=== PATIENT | male | born 1980 | race Caucasian/White ===

== ENCOUNTER 2018-12-21 18:36 | Observation (INO) ==
[2018-12-21] MEDS ORDERED: ZOFRAN IV ONE (19:04)
[2018-12-21] MEDS ORDERED: MORPHINE IV ONE (19:04)
--- NOTE | 2018-12-21 19:09 | PROVIDER DOCUMENTATION ---
HPI-Abdominal Pain/GI Problem - General Chief Complaint: Abdominal Pain Stated Complaint: HERNIA PAIN/MID STOMACH Time Seen by Provider: 12/21/18 18:59 Source: patient Allergies/Adverse Reactions: Patient Allergies Allergy/AdvReac Type Severity Reaction Status Date / Time No Known Allergies Allergy Verified 12/21/18 18:43 Home Medications: Home Medication List Medication Instructions Recorded Confirmed Last Taken Type NK [No Home Medications] 01/12/18 12/21/18 Unknown History - History of Present Illness-ABD Nature of Presenting Problems: 38 YOM PRESENTS WITH C/O LLQ AND PERIUMBILICAL ABDOMINAL PAIN. HE HAS A HERNIA AND HAS BEEN WEARING AND ABDOMINAL BINDER. HE REPORTS THE PAIN BEGAN UPON WAKING, HIS STOMACH IS TENDER AND HE HAS NAUSEA. DENIES FEVER, CHILLS, VOMITING, DIARRHEA Abdominal Pain Onset Location: reports: LLQ, periumbilical Pain Radiation: reports: no radiation Quality of Pain: reports: aching Severity in ED: reports: moderate Onset/Duration: reports: 4-6 hours ago Timing: reports: still present Activities at Onset: reports: none Exposure to sick contacts?: No Modifying Factors: improves with: nothing Associated Symptoms: reports: nausea Last BM: 24 hours ago Dark Stools Present?: reports: none noticed Rectal Bleeding: reports: none Rectal Pain: reports: none Emesis Description: reports: other Bruising or Bleeding Gums?: No Similar Symptoms Previously?: No Recently seen or treated by another doctor?: No Review of Systems - Adult - REVIEW OF SYSTEMS - ADULT Constitutional: reports: no symptoms reported. denies: see HPI, chills, fever, fatique, night sweats, weight gain, weight loss, other Eyes: reports: no symptoms reported. denies: see HPI, discharge, dry eyes, decreased vision, blurred vision, double vision, eye pain, redness, other Ears, Nose, Mouth & Throat: reports: no symptoms reported. denies: see HPI, ear discharge, ear pain, hearing loss, tinnitus, epistaxis, sinus problem, nose pain, loose teeth, mouth/dental pain, mouth swelling, hoarseness, throat pain, throat swelling, other Cardiovascular: reports: no symptoms reported. denies: see HPI, chest pain, edema, heart murmur, irregular heart rate, orthopnea, palpitations, poor circulation, PND, syncope, other Respiratory: reports: no symptoms reported. denies: see HPI, chronic cough, cough, dyspnea on exertion, excessive sputum production, hemoptysis, pleurisy, shortness of breath, wheezing, other Gastrointestinal: reports: abdominal pain, nausea. denies: no symptoms reported, see HPI, hematemesis, constipation, diarrhea, difficulty swallowing, frequent heartburn, poor appetite, rectal bleeding, vomiting, other Genitourinary: reports: no symptoms reported. denies: see HPI, dysuria, discharge, frequency, flank pain, frequent UTI's, hematuria, hesitency, incontinence, urinary retention, urgency, other Musculoskeletal: reports: no symptoms reported. denies: see HPI, bone pain, back pain, frequent leg cramps, joint pain, joint swelling, muscle aches, muscle weakness, neck pain, other Integumentary: reports: no symptoms reported. denies: see HPI, hives, hair loss, itching, mole changes, nail changes, rash, skin sores/ulcer, skin thickening, other Neurological: reports: no symptoms reported. denies: see HPI, ataxia, dizziness/vertigo, headache/migraines, loss of balance, numbness, paresthesia, seizure, slurred speech, syncope, tremors, other Psychiatric: reports: no symptoms reported. denies: see HPI, anxiety, anti- depressant use, alcohol/drug dependence, depression, emotional problems, insomnia, panic attacks, suicidal thoughts, other Endocrine: reports: no symptoms reported. denies: see HPI, change in skin pigment, excessive sweating, goiter, cold intolerance, heat intolerance, increased hunger, increased thirst, polyuria, other Hematologic/Lymphatic: reports: no symptoms reported. denies: see HPI, blood clots, easy bruising, low blood count, lymphedema, prolonged bleeding, swollen lymph nodes, transfusions, other Allergic/Immunologic: reports: no symptoms reported. denies: see HPI, allergic reactions, allergic rhinitis, asthma, eczema, food allergy, frequent infections, hay fever, hives, positive PPD, urticaria, other Past History - Adult - PAST MEDICAL HISTORY-ADULT Review of Records: reports: Nursing Assessment Review, Social history reviewed & non-contributory. Major Childhood Illnesses: reports: denies history Cardiovascular: reports: denies history Respiratory: reports: denies history Gastrointestinal: reports: denies history, diverticulosis Genitourinary: reports: kidney stones Other Conditions: reports: denies history - PRIOR SURGERIES/PROCEDURES Surgical/Procedure History: reports: other (colon resection) - PRIOR HOSPITALIZATIONS Prior Hospitalizations: reports: none - IMMUNIZATION STATUS Childhood Immunizations: See Nurse Assessment Flu Vaccine: See Nurse Assessment - FAMILY HISTORY Family History: reviewed, not pertinent Physical Exam-General - PHYSICAL EXAM-ADULT Initial Vital Signs Reviewed: Yes - CONSTITUTIONAL General Appearance: appears well, alert, no apparent distress - EYES Eyes: PERRL/EOMI, pink conjunctivae - HEAD, EARS, NOSE, MOUTH & THROAT HENMT: normocephalic/atraumatic, moist mucous membranes, normal ENT inspection - NECK Neck: non-tender, full range of motion, supple - RESPIRATORY Respiratory: chest non-tender, lungs clear, normal breath sounds, no pleuratic chest pain, no respiratory distress, no accessory muscle use - CARDIOVASCULAR Cardiovascular: normal peripheral pulses, regular rate, rhythm, no edema, no gallop, no JVD, no murmur - GASTROINTESTINAL (ABDOMEN) Abdominal Exam: normal bowel sounds, soft, tenderness, hernia. negative: non tender - LYMPHATIC Lymphatic: no adenopathy - MUSCULOSKELETAL Back Exam: normal inspection, no CVA tenderness, no vertebral tenderness Extremity: normal range of motion, non-tender, normal gait - SKIN Integumentary: normal color, normal turgor, warm/dry - NEUROLOGIC Neurologic: grossly normal - PSYCHIATRIC Psych/Mental Status: normal mood/affect, oriented x 3 Progress - PLAN OF CARE/RESULTS Progress/Plan/Lab Results: Vital Signs - 8 hr 12/21/18 18:39 Temperature 97.6 F Pulse Rate 70 Respiratory Rate 17 Blood Pressure 132/84 O2 Sat by Pulse Oximetry 96 Orders Category Date Time Status Saline Loc NOW Care 12/21/18 19:[address] ABD/PELVIS W/IV CONT ONLY [CT] Stat Exams 12/21/18 19:04 Ordered AMYLASE [CHEM] Stat Lab 12/21/18 19:04 Uncollected CBC WITH ELECTRONIC DIFF [HEME] Stat Lab 12/21/18 19:03 Uncollected COMPREHENSIVE METABOLIC PANEL [CHEM] Stat Lab 12/21/18 19:04 Uncollected LIPASE [CHEM] Stat Lab 12/21/18 19:04 Uncollected Morphine Med 12/21/18 19:04 Once 4 mg IV NOW ONE Ondansetron [Zofran] Med 12/21/18 19:04 Once 4 mg IV NOW ONE D/W PT WHO IS IN AGREEMENT FOR ADMISSION TO BE SEEN BY SURGERY IN THE MORNING ER REVIEWED CT REPORT AND VERIFIES OBSTRUCTION V NONOBSTRUCTION Result Diagrams: 12/21/18 19:45 12/21/18 19:45 - CT/MRI 1 CT Study: Abdomen, Pelvis Impression: See EMR Report (EXAM: CT ABD/PELVIS W/IV CONT ONLY INDICATION: PAIN, TENDERNESS, nausea TECHNIQUE: This exam was performed using automated exposure control, adjustment of mA or kV according to patient size, and/or use of iterative reconstruction technique. COMPARISON: 05/14/2017 FINDINGS: The liver, gallbladder, spleen, pancreas, and adrenal glands are unremarkable. There are a couple of nonobstructing intrarenal stones on the right. There is no hydronephrosis. The kidneys are essentially unremarkable, otherwise. The urinary bladder is unremarkable. The appendix is normal. There is a surgical staple line at the distal sigmoid. There is a supraumbilical ventral abdominal wall hernia. It contains several loops of small bowel. One of the loops of bowel has an associated stable line. This loop is distended indicating obstruction. There is mild surrounding edema. The remainder of the GI tract is grossly unrema rkable. No free abdominal gas is appreciated. IMPRESSION: 1.Prominent supraumbilical ventral abdominal wall hernia containing an unobstructed loop of small bowel. 2.Other incidental/nonacute findings detailed above. Electronically signed by Rishi Pacheco 12/21/2018 9:51 PM 12/21/182150 Interp reting Physician: Rishi Pacheco MD Dictated Date/Time: 12/21/182146 cc: Jenna Gu; None,PCP) - CONSULTS/PCP/HOSPITALIST Notification #1 *Consult/PCP/Hospitalist*: DR GU Time Discussed: 22:15 Reason/Comments: ADMIT TO DR GU, HE WILL SEE IN AM Consult Disposition: Admit Departure - Departure Date of Disposition Decision: 12/21/18 Time of Disposition Decision: 22:15 DIAGNOSIS: Ventral hernia with bowel obstruction Disposition: ADMITTED INPATIENT 09 Certified Medical Emergency: Emergent Condition: Stable Referrals and Follow-Ups: None,PCP [Primary Care Provider] - - Critical Care Note This patient required my direct & personal management of CC.: No Attestation - Physician/ BENITA Attestation Patient care was provided by Advanced Practice Provider:: Yes Advanced Practice Provider:: Jenna Gu Advanced Practice Provider documentation review:: The Mid-level provider documentation, treatment plan and medical decision making was reviewed by the physician who agrees with all treatment and medical decision making by the MLP. The physician spent face to face time with patient:: No Advanced Practice Provider documentation review:: Supervising physician onsite and consulted in the evaluation and care of this patient. The physician did not have a face to face encounter with the patient.
[2018-12-21 19:53] LABS: BASO# 0.01 X1000 (0.0-0.2); BASO% 0.1 % (0.0-0.8); HEMATOCRIT 49.7 % (42.0-52.0); HEMOGLOBIN 17.5 g/dL (14.0-18.0); LYMPH# 1.62 X1000 (1.2-3.4); LYMPH% 21.5 % (20.5-51.1); MCH 30.4 PG (27-31); MCHC 35.2 g/dL (33-37); MCV 86.3 FL (81-99); MONO# 0.53 X1000 (0.11-0.59); MPV 10.8 FL (7.4-10.4); NEUT# 5.09 X1000 (1.4-6.5); NEUT% 67.4 % (42.2-75.2); PLT 163 X1000 (130-400); RBC 5.76 XMIL (4.7-6.1); RDW 13.3 % (11.5-14.5); WBC 7.55 X1000 (4.8-10.8)
[2018-12-21 20:32] LABS: AGAP 12; ALB/GLOB RATIO 1.7; ALBUMIN 4.2 g/dL (3.5-5.0); ALKALINE PHOSPHATASE 91 U/L (32-122); AMYLASE 56 U/L (20-200); BUN 14 mg/dL (8-22); CHLORIDE 105 mmol/L (98-107); COSMO 281; ESTIMATED GFR > 60; GLUCOSE 88 mg/dL (70-104); GOT 28 U/L (10-34); GPT 37 U/L (10-44); LIPASE 36 U/L (13-60); POTASSIUM 4.3 mmol/L (3.5-5.1); SODIUM 141 mmol/L (136-145); TCO2 24 mmol/L (25-35); TOTAL BILIRUBIN 0.65 mg/dL (0.20-1.00); TOTAL PROTEIN 6.7 g/dL (6.3-8.3)
--- NOTE | 2018-12-21 21:53 | Diag Imaging Result Doc PS360 ---
EXAM: CT ABD/PELVIS W/IV CONT ONLY INDICATION: PAIN, TENDERNESS, nausea TECHNIQUE: This exam was performed using automated exposure control, adjustment of mA or kV according to patient size, and/or use of iterative reconstruction technique. COMPARISON: 05/14/2017 FINDINGS: The liver, gallbladder, spleen, pancreas, and adrenal glands are unremarkable. There are a couple of nonobstructing intrarenal stones on the right. There is no hydronephrosis. The kidneys are essentially unremarkable, otherwise. The urinary bladder is unremarkable. The appendix is normal. There is a surgical staple line at the distal sigmoid. There is a supraumbilical ventral abdominal wall hernia. It contains several loops of small bowel. One of the loops of bowel has an associated stable line. This loop is distended indicating obstruction. There is mild surrounding edema. The remainder of the GI tract is grossly unremarkable. No free abdominal gas is appreciated. IMPRESSION: 1.Prominent supraumbilical ventral abdominal wall hernia containing an unobstructed loop of small bowel. 2.Other incidental/nonacute findings detailed above. Electronically signed by Rishi Pacheco 12/21/2018 9:51 PM
[2018-12-21] MEDS ORDERED: NS 1,000 ML IV ONE (22:17)
[2018-12-22] MEDS: MORPHINE IV PRN ×3 (00:19→08:38)
[2018-12-22] MEDS: ZOFRAN IV PRN ×3 (00:19→16:07)
--- NOTE | 2018-12-22 06:43 | HISTORY AND PHYSICAL ---
HISTORY: A 38-year-old gentleman who is admitted with periumbilical pain. He has a known hernia there. Yesterday, he started having some pain that was increased. He denies any nausea or vomiting. He has a known incisional hernia, and has had a colon resection about 5 or 6 years ago. He had a strangulated loop of small bowel that was resected a year ago. This is the second admission for his hernia. The previous time he was asked to lose weight to make his hernia repair opportunity with less risk. MEDICATIONS: He denies any medications at home. ALLERGIES: He has no known drug allergies. PAST MEDICAL HISTORY: He has had lithotripsy in the past. His other medical problems include kidney stones and obesity. SOCIAL HISTORY: He is a former smoker. He does drink socially. FAMILY HISTORY: Pertinent for diverticulitis and heart disease. REVIEW OF SYSTEMS: Negative in all 10 sub systems except as noted in the HPI. PHYSICAL EXAMINATION: VITAL SIGNS: He is afebrile. Heart rate 58, respiratory rate 18, and blood pressure 90/52. His weight is down to about 320 pounds. He says he has lost 65 pounds in the past year. LYMPHATIC: No cervical adenopathy. LUNGS: Bilateral breath sounds. HEART: Regular rate and rhythm. ABDOMEN: Soft. He does have incisional hernia in the midline. It is mildly tender to palpation. EXTREMITIES: No peripheral edema. NEUROLOGIC: He is awake and alert. DIAGNOSTICS/LABS: White count is normal. Chemistry is normal. ASSESSMENT: Incisional hernia with symptoms. PLAN: Admission for observation. cc: Mike Gu MD
[2018-12-22] MEDS: NS 1,000 ML IV SCH (14:07)
[2018-12-22] MEDS ORDERED: MORPHINE IV PRN (21:27)
[2018-12-22] MEDS: NORCO-10 PO PRN (22:30)
[2018-12-23] MEDS: NORCO-10 PO PRN ×2 (06:21→11:58)
[2018-12-23 09:15] LABS: BASO# 0.01 X1000 (0.0-0.2); BASO% 0.2 % (0.0-0.8); EOS# 0.23 X1000 (0.0-0.7); HEMOGLOBIN 15.2 g/dL (14.0-18.0); LYMPH# 1.59 X1000 (1.2-3.4); LYMPH% 27.4 % (20.5-51.1); MCH 30.3 PG (27-31); MCHC 34.5 g/dL (33-37); MCV 87.6 FL (81-99); MONO# 0.47 X1000 (0.11-0.59); MONO% 8.1 % (1.7-9.3); MPV 10.9 FL (7.4-10.4); NEUT% 60.3 % (42.2-75.2); PLT 153 X1000 (130-400); RBC 5.02 XMIL (4.7-6.1); RDW 12.9 % (11.5-14.5)
[2018-12-23] MEDS: NS 1,000 ML IV SCH (09:39)
[2018-12-23 09:50] LABS: AGAP 12; BUN 8 mg/dL (8-22); CALCIUM 7.8 mg/dL (8.8-10.2); CHLORIDE 106 mmol/L (98-107); COSMO 279; CREATININE 0.8 mg/dL (0.7-1.2); ESTIMATED GFR > 60; GLUCOSE 88 mg/dL (70-104); POTASSIUM 3.7 mmol/L (3.5-5.1); SODIUM 141 mmol/L (136-145); TCO2 23 mmol/L (25-35)
[2018-12-23 11:41] VITALS: BP 98/63
--- NOTE | 2018-12-23 19:17 | GENERAL SURGERY PROGRESS NOTE ---
DATE: 12/23/2018 SUBJECTIVE: The patient is doing okay. Has abdominal pain and soreness, but no worse than when he was admitted. He is passing gas. No nausea or vomiting. He is tolerating a clear liquid diet without any trouble. OBJECTIVE: Vital Signs: He is afebrile. Vital signs are stable. General: He is awake, alert, oriented x3. No acute distress. GI: Soft, nondistended. Tenderness around his incisional ventral hernia, which is reducible and large. LABORATORY: White blood cell count normal. Hemoglobin and hematocrit normal. Chemistry panel reviewed and unremarkable. ASSESSMENT AND PLAN: A 38-year-old male with reducible recurrent incisional hernia. He is improved. He is showing no signs of obstruction or strangulation. We will discharge him home. We are planning future laparoscopic component separation with open incisional hernia repair. I have been over the risks and benefits with him, including bleeding, infection, skin necrosis, recurrent hernia, injury to the bowel, and other imponderables. He understands and agrees to proceed. cc: MD Mike Gupta MD
== END 2018-12-23 15:33 | disposition home or self-care (01) ==
LOC: ED 18:36 → 4N 23:19 → INTOOBSV 23:19
PROVIDERS: ADMIT Surgery; ATTEND Surgery

== ENCOUNTER 2019-01-01 08:37 | Observation (INO) ==
[2018-12-30 15:42] LABS: HEMATOCRIT 46.6 % (42.0-52.0); MCH 29.9 PG (27-31); MCHC 34.3 g/dL (33-37); MCV 87.1 FL (81-99); MPV 10.8 FL (7.4-10.4); RBC 5.35 XMIL (4.7-6.1); RDW 13.2 % (11.5-14.5); WBC 6.46 X1000 (4.8-10.8)
[2018-12-30 15:59] LABS: AGAP 11; BUN 14 mg/dL (8-22); CALCIUM 8.8 mg/dL (8.8-10.2); CHLORIDE 103 mmol/L (98-107); COSMO 276; CREATININE 0.8 mg/dL (0.7-1.2); ESTIMATED GFR > 60; GLUCOSE 88 mg/dL (70-104); POTASSIUM 4.6 mmol/L (3.5-5.1); SODIUM 138 mmol/L (136-145); TCO2 24 mmol/L (25-35)
[2019-01-01] MEDS ORDERED: KEFZOL 1 GM/D5W 2 GM/100 ML IVPB ONE (09:07)
[2019-01-01] MEDS ORDERED: PEPCID ONE (09:07)
[2019-01-01] MEDS ORDERED: LR 1,000 ML ONE ×2 (09:07→16:14)
[2019-01-01] MEDS ORDERED: REGLAN ONE (09:07)
[2019-01-01] MEDS ORDERED: VERSED ONE (10:03)
[2019-01-01] MEDS ORDERED: FENTANYL ONE ×3 (10:04→14:02)
[2019-01-01] MEDS ORDERED: DIPRIVAN 1% ONE (10:04)
[2019-01-01] MEDS ORDERED: QUELICIN (DOSE) ONE (10:08)
[2019-01-01] MEDS ORDERED: XYLOCAINE-MPF 2% ONE (10:08)
[2019-01-01] MEDS ORDERED: DECADRON ONE ×2 (10:09→11:33)
[2019-01-01] MEDS ORDERED: ZOFRAN ONE ×2 (10:09→11:33)
[2019-01-01] MEDS ORDERED: NEOSTIGMINE ONE (10:18)
[2019-01-01] MEDS ORDERED: ROBINUL ONE ×2 (10:18→11:30)
[2019-01-01] MEDS ORDERED: SENSORCAINE 0.25%/EPI 1:200,000 ONE (11:05)
[2019-01-01] MEDS ORDERED: EPHEDRINE ONE (11:36)
[2019-01-01] MEDS ORDERED: NORCURON ONE (13:02)
[2019-01-01] MEDS ORDERED: STERILE WATER INJ. ONE (13:02)
[2019-01-01] MEDS ORDERED: DILAUDID PCA VIAL ONE (14:31)
[2019-01-01] MEDS: DILAUDID ONE ×5 (14:36→15:32)
[2019-01-01] MEDS ORDERED: TORADOL ONE (15:22)
[2019-01-01] MEDS ORDERED: OFIRMEV 1000 MG/ISOTONIC SOLN 1,000 MG/100 ML BOTTLE ONE (15:22)
[2019-01-01] MEDS ORDERED: NARCAN IV PRN (16:15)
[2019-01-01] MEDS ORDERED: LR 1,000 ML IV SCH (16:15)
[2019-01-01] MEDS ORDERED: PHENERGAN IV PRN (16:15)
[2019-01-01] MEDS ORDERED: SODIUM CHLORIDE 0.9% INJ PRN (16:15)
[2019-01-01] MEDS ORDERED: BENADRYL IV PRN (16:15)
[2019-01-01] MEDS ORDERED: DILAUDID PCA VIAL IV PRN (16:15)
[2019-01-01] MEDS ORDERED: NARCAN 0.4 MG in LR 1,000 ML IV PRN (16:15)
[2019-01-01] MEDS ORDERED: ATARAX PO PRN (16:15)
[2019-01-01] MEDS ORDERED: ZOFRAN IV PRN (16:15)
--- NOTE | 2019-01-01 18:10 | OPERATIVE NOTE ---
PROCEDURE DATE: 01/01/2019 PREOPERATIVE DIAGNOSIS: Incisional hernia. POSTOPERATIVE DIAGNOSIS: Incisional hernia. PROCEDURE: 1. Endoscopic component separation of the external oblique aponeurosis. 2. Open incisional hernia repair with mesh. SURGEON: Alfa Lovett MD. MACADAM RAKER: Mike Gu MD. ANESTHESIA: General. ESTIMATED BLOOD LOSS: 100 mL. COMPLICATIONS: None apparent. SPECIMENS: None. DRAINS: Three #10 RADHA. FINDINGS: His hernia measured approximately 9 cm in greatest dimension. TECHNIQUE: He was brought to the operating room and placed supine on the table. General anesthesia was induced. He was prepped and draped in usual sterile fashion after a Sepulveda catheter was placed. I made a periumbilical midline incision with a knife, and carried this down through the dermis, into the subcutaneous fat sharply. I then entered the hernia sac sharply. I then began working to define the edges of the fascia, and taking down the adhesions of the hernia sac and bowel from the anterior abdominal wall. This was done carefully with Metzenbaum scissors and cautery. Dr. Gu was present throughout all of the buitrago portions of the case, assisting with the lysis of adhesions, exposure, as well as performing the endoscopic component separation and also the placement of the mesh. He was helpful in retracting and exposure for these maneuvers. Once the fascial edges were clearly delineated all of the way around and the adhesions were taken down, we then turned our attention to the component separation. An 11 mm incision was made just below the margin of the 11th rib laterally on the right. The external oblique aponeurosis was exposed and incised, and then the space between the external and internal oblique was developed. The balloon spacer was passed into this space down to the inguinal ligament and the balloon spacer was inflated slowly. We then removed the balloon and insufflated this space with CO2 gas. Two 5 mm incision ports were placed laterally and inferiorly under direct vision. We swept the internal oblique muscle inferiorly, the external oblique superiorly. We identified the semilunar line, and then I incised the external oblique fibers 2 cm lateral to the semilunar line, all of the way from the ribs down to the inguinal ligament. We then placed a RADHA drain in this space. There were no signs of any bleeding. The drain was anchored to the skin with 3-0 nylon. The camera port site fascia was closed with [id number] 0 Vicryl. I then turned my attention to the left-sided component separation and performed it in the same fashion as described on the right. Once this was complete, we turned our attention back to the midline repair. The fascial defect measured approximately 9 cm in a cephalad direction. I selected a 14 x 11 cm Ventrio mesh. It was placed in an underlay position and then anchored to the fascia with interrupted 0 Prolene vertical mattress sutures. We placed multiple sutures, leaving no more than 1 to 2 cm in between. We had good coverage circumferentially. After this was complete, I then closed the fascia over the mesh with a running 0 Prolene. A RADHA drain was placed in the subcutaneous space and brought out through a separate stab incision. The incisions were closed with skin clips. He tolerated this well, was awakened in stable condition, and transferred to the recovery room. cc: Alfa Lovett MD
[2019-01-01] MEDS ORDERED: FLU VACCINE IM ONE (18:18)
[2019-01-01] MEDS: PERIDEX MT SCH (22:12)
[2019-01-02] MEDS ORDERED: DILAUDID IV PRN (08:31)
--- NOTE | 2019-01-02 09:17 | GENERAL SURGERY PROGRESS NOTE ---
DATE: 01/02/2019 SUBJECTIVE: The patient is doing okay. He denies severe pain, nausea, or vomiting. He ate breakfast. He has not been out of bed yet. OBJECTIVE: He is afebrile. Vital signs are stable.General: He is awake, alert, oriented x3. No acute distress. GI: Soft, appropriately tender. Incisional dressing is clean and dry RADHA drains have serosanguineous fluid and only 5-10 mL out. ASSESSMENT AND PLAN: A 38-year-old male postoperative day 1, incisional hernia repair with component separation. We will get him up and walking today. Stop the TUBE TEST TECHNICIAN pump and hopefully discharge him later this afternoon. cc: Alfa Lovett MD
[2019-01-02] MEDS: PERIDEX MT SCH ×2 (13:08→23:14)
[2019-01-02] MEDS ORDERED: BENADRYL PO PRN (15:12)
--- NOTE | 2019-01-02 15:31 | GENERAL SURGERY PROGRESS NOTE ---
DATE: 01/02/2019 SUBJECTIVE: The patient continues to have some abdominal pain and has felt some rash on his arms. OBJECTIVE: He is afebrile. Vital signs are stable.General: He is awake, alert, and oriented x3. No acute distress. Skin: There is some slight redness and warmth to his upper body, perhaps some mild rash developing. Nothing on his lower body. ASSESSMENT AND PLAN: A 38-year-old male status post incisional hernia repair, still with some pain control and now a rash. We will stop the Dilaudid and use Theodore only for pain. He will get some Benadryl as needed for itching. We will watch him one more night, and make sure he is comfortable and having good pain control prior to discharge. cc: Alfa Lovett MD
[2019-01-02] MEDS: ZOFRAN IV PRN ×2 (19:30→23:38)
[2019-01-02] MEDS: NORCO-10 PO PRN (23:15)
[2019-01-03] MEDS: NORCO-10 PO PRN ×4 (05:29→23:28)
--- NOTE | 2019-01-03 06:37 | GENERAL SURGERY PROGRESS NOTE ---
DATE: 01/03/2019 SUBJECTIVE: Patient seems to be doing okay. OBJECTIVE: Vital Signs: Patient is currently afebrile. Vital signs stable. General: No acute distress. Cardiovascular: Regular rate and rhythm. Lungs: Grossly clear. Abdomen: Soft, appropriately tender. RADHA drains is in place with serosanguineous output. ASSESSMENT AND PLAN: A 38-year-old gentleman, currently postoperative day #2 from a component separation. Postoperative state. At this time, we will try to discharge the patient home today and see how he does. cc: MD Alfa Graham MD
[2019-01-03] MEDS: PERIDEX MT SCH ×2 (10:01→20:16)
[2019-01-03] MEDS: ZOFRAN IV PRN (10:01)
[2019-01-04] MEDS: NORCO-10 PO PRN (05:14)
--- NOTE | 2019-01-04 06:56 | GENERAL SURGERY PROGRESS NOTE ---
DATE: 01/04/2019 The patient seems to be doing okay. His pain is a little bit better controlled. We could not get him out yesterday secondary to pain control but he is feeling a little bit better and we will get him out today. cc: MD Alfa Graham MD
[2019-01-04] MEDS: PERIDEX MT SCH (08:13)
[2019-01-04 08:36] VITALS: BP 110/73
== END 2019-01-04 09:00 | disposition home or self-care (01) ==
LOC: 4N 08:37 → OR 08:37
PROVIDERS: ADMIT Surgery; ATTEND Surgery